=== PATIENT | female | born 1965 | race Caucasian/White ===

== ENCOUNTER 2017-05-19 19:30 | Inpatient (IN) | payer MEDICAID, OTHER ==
[2017-05-19 19:30] VITALS: BMI 22.8
--- NOTE | 2017-05-19 19:59 | C.PDOC ---
History Of Present Illness 52 y/o female presents to the ED requesting heroin detox. Patient has already been prescreened. Patient admits to using around 10 bags/day and reports her last use was around 2 hours [place]. Patient denies suicidal/homicidal ideation. Time Seen by Provider: 05/19/17 19:59 Chief Complaint (Nursing): Substance Abuse History Per: Patient History/Exam Limitations: intoxication Onset/Duration Of Symptoms: Hrs Current Symptoms Are (Timing): Still Present Suicide/Self Injury Attempted (Context): None Modifying Factor(s): Other (+heroin ) Severity: Mild Pain Scale Rating Of: 3 Associated Symptoms: denies: Suicidal Thoughts, Suicidal Plan Involuntary Hold By: None Recent travel outside of the [place]: No Additional History Per: Patient Past Medical History Reviewed: Historical Data, Nursing Documentation, Vital Signs Vital Signs: Last Vital Signs Temp 98.4 F 05/19/17 19:33 Pulse 98 H 05/19/17 19:33 Resp 20 05/19/17 19:33 BP 118/76 05/19/17 19:33 Pulse Ox 96 05/19/17 20:29 - Medical History PMH: Anxiety, Asthma, Bipolar Disorder, Depression, HTN, Schizophrenia Surgical History: Appendectomy - [facility] FOR SUBSTANCE ABUSE TREATMENT (09/05/16) [facility] FOR SUBSTANCE ABUSE TREATMENT, PSYCHOEDUCATION (09/05/16) Family History: States: Unknown Family Hx - Social History Hx Tobacco Use: Yes Hx Alcohol Use: Yes Hx Substance Use: Yes (heroin and cocaine) - Immunization History Hx Tetanus Toxoid Vaccination: No Hx Influenza Vaccination: No Hx Pneumococcal Vaccination: No Review Of Systems Constitutional: Negative for: Fever, Chills Cardiovascular: Negative for: Chest Pain, Palpitations Respiratory: Negative for: Shortness of Breath Gastrointestinal: Negative for: Nausea, Vomiting, Abdominal Pain Musculoskeletal: Negative for: Back Pain Skin: Negative for: Rash, Lesions, Jaundice, Bruising Neurological: Negative for: Weakness, Numbness Psych: Positive for: Other (+requesting heroin detox ). Negative for: Anxiety, Depression, Suicidal ideation Physical Exam - Physical Exam Appears: No Acute Distress Skin: Warm, Dry Head: Atraumatic Eye(s): bilateral: Normal Inspection Oral Mucosa: Moist Neck: Supple Chest: Symmetrical, No Deformity, No Tenderness Cardiovascular: Rhythm Regular, No Murmur Respiratory: No Rales, No Rhonchi, No Wheezing Extremity: Normal ROM, Capillary Refill (less than 2 seconds ) Neurological/Psych: Oriented x3 Gait: Steady ED Course And Treatment - Laboratory Results Result Diagrams: 05/19/17 20:21 05/19/17 20:21 O2 Sat by Pulse Oximetry: 96 (on RA) Pulse Ox Interpretation: Normal Progress Note: labs ordered and reviewed. Disposition Discussed With Dr.: Ni Waddell Comment: accepted the pt on his service and took over the care at 9:21 PM Doctor Will See Patient In The: Hospital Counseled Patient/Family Regarding: Studies Performed, Diagnosis - Disposition Disposition: HOSPITALIZED Disposition Time: 19:59 Condition: FAIR - Clinical Impression Clinical Impression: Opioid abuse, Benzodiazepine abuse - Scribe Statement The provider has reviewed the documentation as recorded by the Scribe (Carlita Wright) Provider Attestation: All medical record entries made by the Scribe were at my direction and personally dictated by me. I have reviewed the chart and agree that the record accurately reflects my personal performance of the history, physical exam, medical decision making, and the department course for this patient. I have also personally directed, reviewed, and agree with the discharge instructions and disposition. Decision To Admit - Pt Status Changed To: Hospital Disposition Of: Inpatient - Admit Certification Admit to Inpatient:: After my assessment, the patient will require hospitalization for at least two midnights. This is because of the severity of symptoms shown, intensity of services needed, and/or the medical risk in this patient being treated as an outpatient. - InPatient: Physician Admission Certification: I certify that this patient requires 2 or more midnights of care for the following reason:: After my assessment, the patient will require hospitalization for at least two midnights. This is because of the severity of symptoms shown, intensity of services needed, and/or the medical risk in this patient being treated as an outpatient. - . Bed Request Type: Detox Admitting Physician: Ni Waddell Patient Diagnosis: Opioid abuse, Benzodiazepine abuse
[2017-05-19 20:36] LABS: ALBUMIN 3.9 g/dL (3.5-5.0)
[2017-05-19 20:38] LABS: BASO % 0.5 % (0.0-2.0); EOS # 0.3 K/uL (0.0-0.7); EOS % 3.6 % (0.0-4.0); HEMOGLOBIN 12.1 g/dL (11.0-16.0); LYMPH # 2.4 K/uL (1.0-4.3); LYMPH % 30.4 % (20.0-40.0); MEAN CELL VOLUME 92.7 fL (81.0-99.0); MEAN CORPUSCULAR HEMOGLOBIN 30.7 pg (27.0-31.0); MEAN CORPUSCULAR HGB CONC 33.1 g/dL (33.0-37.0); MEAN PLATELET VOLUME 7.7 fL (7.2-11.7); MONO # 0.7 K/uL (0.0-0.8); MONO % 9.1 % (0.0-10.0); NEUT # 4.4 K/uL (1.8-7.0); NEUT % 56.4 % (50.0-75.0); RBC 3.93 Mil/uL (3.80-5.20); RED CELL DISTRIBUTION WIDTH 13.3 % (11.5-14.5); WHITE BLOOD COUNT 7.8 K/uL (4.8-10.8)
[2017-05-19 20:39] LABS: ALB/GLOB RATIO 1.1 (1.0-2.1); ALT/SGPT 27 U/L (9-52); AST/SGOT 28 U/L (14-36); BLOOD UREA NITROGEN 20 mg/dL (7-17); CALCIUM 9.1 mg/dl (8.6-10.4); GFR AFRICAN-AMERICAN > 60; GFR NON-AFRICAN AMERICAN 58
[2017-05-19 20:43] LABS: BARBITURATES, UR NEGATIVE (NEGATIVE)
[2017-05-19 20:44] LABS: BENZODIAZEPINES, UR POSITIVE (NEGATIVE)
[2017-05-19 20:48] LABS: OPIATES, UR POSITIVE (NEGATIVE); PHENCYCLIDINE, UR NEGATIVE (NEGATIVE); SQUAMOUS EPITHIAL 2 /hpf (0-5); URINE BILIRUBIN NEGATIVE (NEGATIVE); URINE BLOOD NEGATIVE (NEGATIVE); URINE CLARITY Clear (Clear); URINE COLOR Yellow (YELLOW); URINE GLUCOSE (UA) NORMAL (Normal); URINE LEUKOCYTE ESTERASE NEG Leu/uL (Negative); URINE NITRATE NEGATIVE (NEGATIVE); URINE PROTEIN NEGATIVE (NEGATIVE); URINE UROBILINOGEN NORMAL mg/dL (0.2-1.0)
[2017-05-19 20:49] LABS: HCG,QUALITATIVE URINE NEGATIVE (NEGATIVE)
[2017-05-20] MEDS ORDERED: Aluminum Hydroxide/Magnesium Hydroxide Susp (30 mL) PO PRN (11:02)
[2017-05-20] MEDS ORDERED: Benzocaine/Menthol (Cepacol) Lozenge PO PRN (11:02)
--- NOTE | 2017-05-20 11:08 | PCM.PSYCH ---
Initial Psychiatric Evaluation - Initial Psychiatric Evaluation Type of Admission: Voluntary Legal Status: Capacity Chief Complaint (in patient's own words): Came in to get help History of Present Illness and Precipitating Events: Patient is a 52 years old HF, who currently lives with her daughter, with the history of opiate use disorder came to the ED to get help in heroin detox. As per the patient she was in a rehab for almost 6 months. But she replased 3 months ago and started sniffing 10-20 bags on a daily basis. Yesterday she abused almost 12 bags of heroin and started developing withdrawal symptoms so came to the to get help in detox. Patient reports withdrawal symptoms, i.e, headache, anxiety, abdominal cramps, joint pains and sweating. Patient reports anxious mood but denies any feelings of hopelessness or helplessness, denies any suicidal ideation or homicidal ideation. Denies any psychotic or manic symptoms. She also reports of abusing Xanax 2 mg off and on but denies any other substance abuse. Past medical history HTN Current Medications: Active Medications Generic Name Dose Route Start Last Admin Trade Name Freq PRN Reason Stop Dose Admin Acetaminophen 650 mg 05/20/17 11:02 Tylenol 325mg Tab PO Q4H PRN Fever greater than 101 F Al Hydrox/Mg Hydrox/Simethicone 30 ml 05/20/17 11:02 Maalox 30 Ml PO TID PRN Indigestion / Heartburn Albuterol 1 puff 05/20/17 11:15 Ventolin Hfa 90 Mcg/Actuation (8 G) IH BID ED Benzocaine/Menthol 1 oliva 05/20/17 11:02 Cepacol Sore Throat PO QID PRN Sore Throat Clonidine HCl 0.1 mg 05/20/17 11:02 Catapres PO Q8 PRN COWS Score More or Equal to 5 Hydroxyzine HCl 25 mg 05/19/17 22:19 05/19/17 22:35 Atarax PO 25 mg Q6 PRN Administration Anxiety Lisinopril 20 mg 05/20/17 11:15 Zestril PO DAILY ED Loperamide HCl 2 mg 05/20/17 11:02 Imodium PO Q8 PRN Diarrhea Nicotine 1 patch 05/20/17 11:15 Nicoderm Cq TD DAILY [facility] Ondansetron HCl 4 mg 05/20/17 11:02 Zofran Tab PO Q8 PRN Nausea/Vomiting Pseudoephedrine HCl 60 mg 05/20/17 11:02 Sudafed Tab PO QID PRN Nasal/Sinus Congestion Quetiapine Fumarate 50 mg 05/19/17 22:00 05/19/17 22:34 Seroquel PO 50 mg HS ED Administration Trazodone HCl 50 mg 05/19/17 21:42 05/19/17 22:35 Desyrel PO 50 mg HS PRN Administration Insomnia Past Psychiatric History - Past Psychiatric History Previous Treatment History: Inpatient Pertinent Medical Hx (Current Medical&Sleep Prob, Allergies): Allergies Allergy/AdvReac Type Severity Reaction Status Date / Time divalproex sodium Allergy Verified 05/19/17 19:39 [From Depakote] Albuterol HFA [Ventolin HFA 90 mcg/actuation (8 g)] 1 puff IH BID 03/14/16 Lisinopril [Zestril] 20 mg PO DAILY #30 tab 09/09/16 Review of Systems - Review of Systems All systems: reviewed and no additional remarkable complaints except - Psychiatric Psychiatric: Anxiety, Irritability Mental Status Examination - Personal Presentation Personal Presentation: Looks stated age - Affect Affect: Constricted - Motor Activity Motor Activity: Calm - Reliability in Providing Information Reliability in Providing Information: Good - Speech Speech: Organized - Mood Mood: Anxious - Formal Thought Process Formal Thought Process: No Impairment - Obsessions/Compulsions Obsessions: No Compulsions: No - Cognitive Functions Orientation: Person, Place, Situation, Time Sensorium: Alert Attention/Concentration: Attentive Abstract Thinking: [place] Estimate of Intelligence: Below average Judgement: Imparied, as evidence by: Poor judgement, Intact, as evidence by: Insight regarding need for hospitalization - Risk Risk: Withdrawal, Diminished functioning - Strength & Assets Inventory Strength & Assets Inventory: Cooperative DSM 5 DX - DSM 5 DSM 5 Diagnosis: Opiate use disorder severe Opiate withdrawal Sedative/hypnotic use disorder moderate - Recommended/Plan of Treatment Treatment Recommendations and Plan of Treatment: Opioid use disorder severe CBT Psychoeducation Supportive therapy, individual therapy Use NC for abstinence Opioid withdrawal CBT Psychoeducation Supportive therapy, individual therapy Clonidine when necessary Subutax taper When necessary medications including Zofran, loperamide, etc Sedative/hypnotic use disorder moderate CBT Psychoeducation Supportive therapy, individual therapy Use NC for abstinence Ativan 1 mg every 6 hours when necessary HTN Continue prescribed medications (Zestril) Monitor for signs and symptoms Asthma Continue prescribed medications (asthma inhaler) Monitor for signs and symptoms - Smoking Cessation Smoking Cessation Initiated: No
[2017-05-20] MEDS: Albuterol HFA 90 mcg/actuation (8 g) IH SCH ×2 (12:26→22:29)
[2017-05-20] MEDS ORDERED: Buprenorphine Hydrochloride 2 mg SL ONE ×2 (18:23→20:00)
[2017-05-21] MEDS: Albuterol HFA 90 mcg/actuation (8 g) IH SCH ×2 (09:00→20:45)
[2017-05-21] MEDS: Buprenorphine Hydrochloride 2 mg SL SCH ×2 (10:56→11:13)
--- NOTE | 2017-05-21 13:21 | PCM.PYCHPN ---
Psychiatric Progress Note - Psychiatric Progress Note Patient seen today, length of contact: 16 min Patient Chief Complaint: "I am very anxious" Problems Identified/Issues Discussed: The pt is seen, chart reviewed, case discussed with staff. Support given, CBT and NJ used briefly No new symptoms reported, improving slowly and needs more time No SEs from medications, risks discussed. After care discussed She is insisting that she get more tx for benzo use - A short detox ordered She refused gabapentin bc of restless leg with that Lexapro started for anxiety d/o Medication Change: Yes (librium and lexapro) Medical Record Reviewed: Yes Mental Status Examination - Cognitive Function Orientation: Person, Place, Situation, Time Memory: Intact Attention: WNL Concentration: Poor Association: WNL Fund of Knowledge: WNL - Mood Mood: Anxious - Affect Affect: Constricted - Speech Speech: Appropriate - Formal Thought Process Formal Thought Process: No Impairment - Suicidal Ideation Suicidal Ideation: No - Homicidal Ideation Homicidal Ideation: No Goal/Treatment Plan - Goal/Treatment Plan Need for Continued Stay: Discharge may exacerbated symptoms, Severe functional impairment Progress Toward Problem(s) and Goals/Treatment Plan: Librium and subutex detox Lexapro for anxiety dis As needed meds and vitamins Attend groups and activities NJ for abstinence and CBT for relapse prevention Support and psychoeducation Consider and encourage MAT Refer to after care Estimated Date of D/C: 05/23/17 If changed, why: or 05/24 - Smoking Cessation Smoking Cessation Initiated: Yes
[2017-05-22] MEDS: Albuterol HFA 90 mcg/actuation (8 g) IH SCH ×2 (09:45→22:03)
[2017-05-22] MEDS: Buprenorphine Hydrochloride 2 mg SL SCH (09:45)
--- NOTE | 2017-05-22 12:58 | PCM.PYCHPN ---
Psychiatric Progress Note - Psychiatric Progress Note Patient seen today, length of contact: 17 min Patient Chief Complaint: "I am better" Problems Identified/Issues Discussed: The pt is seen, chart reviewed, case discussed with staff. Support given, CBT and ID used briefly No new symptoms reported, improving slowly and needs more time No SEs from medications, risks discussed. After care discussed Medication Change: Yes (detox changes daily) Medical Record Reviewed: Yes Mental Status Examination - Cognitive Function Orientation: Person, Place, Situation, Time Memory: Intact Attention: WNL Concentration: Poor Association: WNL Fund of Knowledge: WNL - Mood Mood: Anxious - Affect Affect: Constricted - Speech Speech: Appropriate - Formal Thought Process Formal Thought Process: No Impairment - Suicidal Ideation Suicidal Ideation: No - Homicidal Ideation Homicidal Ideation: No Goal/Treatment Plan - Goal/Treatment Plan Need for Continued Stay: Discharge may exacerbated symptoms, Severe functional impairment Progress Toward Problem(s) and Goals/Treatment Plan: Librium and subutex detox Lexapro for anxiety dis As needed meds and vitamins Attend groups and activities ID for abstinence and CBT for relapse prevention Support and psychoeducation Consider and encourage MAT Refer to after care Estimated Date of D/C: 05/23/17
[2017-05-22 18:22] VITALS: RESP 18
[2017-05-23 06:30] VITALS: O2SAT 97
--- NOTE | 2017-05-23 08:35 | PCM.PYCHDC ---
Mental Status Examination - Mental Status Examination Orientation: Person, Place, Situation, Time Memory: Intact Mood: Anxious Affect: Constricted Speech: Appropriate Attention: WNL Concentration: Poor Association: WNL Fund of Knowledge: WNL Formal Thought Process: No Impairment Suicidal Ideation: No Current Homicidal Ideation?: No Discharge Summary - Discharge Note Reason for Hospitalization: Opioid and benzo detox Psychiatric History (includes Medical, Family, Personal Hx): Anxiety and mild depression Consultations:: List each consultation separately and include: 1. Reason for request. 2. Findings. 3. Follow-up Summary of Hospital Course include:: 1. Description of specific treatment plan utilized for patients during their course of treatmen. 2. Summarize the time- course for resolution of acute symptoms and/or regressed behaviors. 3. Describe issues identified and worked on during hospitalization. 4. Describe medication utilized. 5. Describe medical problems identified and treated. 6. Reassessment of suicide risk Summary of Hospital Course: The pt was admitted and started on treatment with psychotherapy, support, psychoeducation and medications. AL and CBT used. The pt attended groups and activities, as well as milieu therapy. All the risks and benefits of medications are discussed and the patient understood and agreed. The pt improved with the treatments provided. After care discussed with the patient. She only wanted IOP and referred to the [facility], plus NA She will consider MAT, ie Vivitrol - Final Diagnosis (DSM 5) Condition upon Discharge: IMPROVED DSM 5: Opioid use disorder severe Opioid withdrawal Sedative/hypnotic use disorder moderate Anxiety disorder - unspecified Disposition: HOME/ ROUTINE Follow-up Treatment Plan: Continue below medications after discharge. Follow after care plan as discussed in IOP Use relapse prevention skills Return to ER or call 911 if suicidal, homicidal or symptoms relapse. Stay away from stress, alcohol and drugs. See primary doctor once a year. Prescriptions/Medication Reconciliation: Albuterol HFA [Ventolin HFA 90 mcg/actuation (8 g)] 1 puff IH RBID #1 inhaler Escitalopram [Lexapro] 10 mg PO DAILY #30 tab hydrOXYzine HCl [Atarax] 25 mg PO Q6 PRN #60 tab PRN Reason: Anxiety Lisinopril [Zestril] 20 mg PO DAILY #30 tab QUEtiapine [SEROquel] 50 mg PO HS #30 tab traZODone [Desyrel] 50 mg PO HS PRN #30 tab PRN Reason: Insomnia
[2017-05-23] MEDS: Albuterol HFA 90 mcg/actuation (8 g) IH SCH (08:51)
[2017-05-23] MEDS: Buprenorphine Hydrochloride 2 mg SL SCH (09:41)
[2017-05-23 09:52] VITALS: BP 142/98; PULSE 71; TEMP 97.6
== END 2017-05-23 10:44 | disposition home or self-care (01) | DRG 745 ==
LOC: C.ER 19:30 → C.7D 21:19
PROVIDERS: ADMIT Psychiatry & Neurology Psychiatry; ATTEND Psychiatry & Neurology Psychiatry
PROC: HZ2ZZZZ Detoxification Services for Substance Abuse Treatment (ICD-10-PCS; principal; 2017-05-19)
PROC: HZ52ZZZ Individual Psychotherapy for Substance Abuse Treatment, Cognitive-Behavioral (ICD-10-PCS; 2017-05-19)
PROC: HZ42ZZZ Group Counseling for Substance Abuse Treatment, Cognitive-Behavioral (ICD-10-PCS; 2017-05-19)
PROC: HZ59ZZZ Individual Psychotherapy for Substance Abuse Treatment, Supportive (ICD-10-PCS; 2017-05-19)
PROC: HZ56ZZZ Individual Psychotherapy for Substance Abuse Treatment, Psychoeducation (ICD-10-PCS; 2017-05-19)
PROC: HZ46ZZZ Group Counseling for Substance Abuse Treatment, Psychoeducation (ICD-10-PCS; 2017-05-19)
DX: F11.23 Opioid dependence with withdrawal (principal); F13.10 Sedative, hypnotic or anxiolytic abuse, uncomplicated; I10 Essential (primary) hypertension; J45.909 Unspecified asthma, uncomplicated; F41.9 Anxiety disorder, unspecified; F32.9 Major depressive disorder, single episode, unspecified